=== PATIENT | female | born 1965 | race Caucasian/White ===

== ENCOUNTER → 2016-03-25 | Day surgery (SDC) ==
--- NOTE | 2016-03-25 11:50 | OPERATIVE NOTE ---
PROCEDURE DATE: 03/25/2016 PREOPERATIVE DIAGNOSIS: Indeterminate microcalcifications, mid right breast. POSTOPERATIVE DIAGNOSIS: Indeterminate microcalcifications, mid right breast. PROCEDURES PERFORMED: Right breast stereotactic biopsy with clip placement. SURGEON: Lili Valdivia MD [employer]ING DIRECTOR: Flor Plasencia. ANESTHESIA: Local. ESTIMATED BLOOD LOSS: Less than 10 mL. DRAINS: None. INDICATIONS: Louann Arora is a 50-year-old white female who has a history of a right breast stereotactic biopsy in the past. She has also had bilateral breast reduction. On the her most recent bilateral screening mammogram, indeterminate microcalcifications were noted in the mid right breast and biopsy was recommended. This was a cluster of microcalcifications. DESCRIPTION OF PROCEDURE: The patient was brought to [facility]. She was placed prone on our Hologic breast biopsy table and a CC view of the right breast was performed and the microcalcifications in question were identified. Stereotactic images of this area of the breast were performed and, using the stereotactic coordinates, we directed a 9-gauge, vacuum-assisted core needle biopsy device into the area of the microcalcifications, mid right breast. We used a local anesthetic on the skin. We made a small incision on the skin with an 11 blade scalpel so that we could easily introduce this needle into the right breast tissue. Circumferential core biopsies were performed. Post biopsy stereotactic images suggested an accurate biopsy. We did do a specimen radiograph, which documented removal of the microcalcifications in question. We placed a clip in our biopsy cavity and a completion CC view of the right breast showed removal of the microcalcifications in question with good clip placement. She was given postbiopsy instructions. I also spoke to a friend that came with her. We will notify her of her pathology report. She knows to contact me with any problems.
== END | disposition home or self-care (01) ==
LOC: MAMMO 06:58 → EDSTATUS 07:30
PROVIDERS: ATTEND Surgery
DX: N60.01 Solitary cyst of right breast (principal); N60.81 Other benign mammary dysplasias of right breast; R92.0 Mammographic microcalcification found on diagnostic imaging of breast
CPT/HCPCS: 19081; 88305; 88313; A4648